=== PATIENT | female | born 1970 | race Two or more races ===

== ENCOUNTER 2019-11-12 08:08 | Outpatient (CLI) | payer OTHER | END 2019-11-12 08:16 | disposition home or self-care (01) | LOC: RX STUDY 08:08 | PROVIDERS: ATTEND Internal Medicine Gastroenterology | DX: K21.9 Gastro-esophageal reflux disease without esophagitis (principal) ==

== ENCOUNTER 2021-06-08 09:07 | Emergency (ER) | payer OTHER ==
[~2021-06-08] VITALS: Ht 157.5 cm; Wt 77.1 kg
[2021-06-08] MEDS ORDERED: VASOTEC20 MG PO (09:32)
[2021-06-08] MEDS ORDERED: PLAVIX75 MG PO (09:32)
[2021-06-08] MEDS ORDERED: TOPROL XL25 M1 PO (09:33)
[2021-06-08] MEDS ORDERED: ADULT LOW DOSE81 M1 PO (09:33)
== END 2021-06-08 10:58 | disposition home or self-care (01) ==
LOC: ER 09:07
DX: U07.1 COVID-19 (principal); J45.998 Other asthma; I10 Essential (primary) hypertension